=== PATIENT | female | born 1960 | race Caucasian/White ===

== ENCOUNTER 2022-03-04 10:20 | Outpatient (CLI) | payer OTHER, SELFPAY ==
--- NOTE | 2022-03-04 10:35 | XR_ITS ---
WS: [id number] Left hand, 3 views, 03/04/2022 Clinical Data: PARESTHESIA OF SKIN/SWELLING OF JOINT Comparison: None. Findings: No fractures or dislocations are seen. The soft tissues are unremarkable. There is osteoarthritis of the left second through fifth DIP joints. No periarticular demineralization is seen. 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
--- NOTE | 2022-03-04 10:35 | XR_ITS ---
WS: [id number] Right hand, 3 views, 03/04/2022 Clinical Data: PARESTHESIA OF SKIN/SWELLING OF JOINT OF HAND Comparison: None. Findings: No fractures or dislocations are seen. The soft tissues are unremarkable. There is osteoa rthritic change of the DIP joints of the right second through fifth fingers. No periarticular demineralization is seen. 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
== END 2022-03-04 10:21 | disposition home or self-care (01) ==
PROVIDERS: PCP Nurse Practitioner Family; Visit Provider Nurse Practitioner Family
DX: R20.2 Paresthesia of skin (principal); M79.89 Other specified soft tissue disorders; M19.042 Primary osteoarthritis, left hand; M19.041 Primary osteoarthritis, right hand
CPT/HCPCS: 73130

== ENCOUNTER → 2024-05-19 08:04 | Outpatient (BNVA) | payer MEDICARE, OTHER, SELFPAY | PROVIDERS: PCP Nurse Practitioner Family; Visit Provider Surgery | DX: Z12.11 Encounter for screening for malignant neoplasm of colon (principal) | CPT/HCPCS: 99024; 99203 ==

== ENCOUNTER 2024-07-21 10:08 | Day surgery (SDC) | payer MEDICARE, OTHER, SELFPAY ==
[2024-07-21 10:21] VITALS: BP 117/80; PULSE 90; RESP 16; TEMP 36.6; O2SAT 95; BMI 40.7
[2024-07-21] MEDS: sodium chloride 0.9% 1,000 ML 15 ML IV (10:35)
--- NOTE | 2024-07-21 10:36 | ANES.PREANE2 ---
Pre-Anesthetic Assessment Height/Weight: Height 1.6 m Weight 104.326 kg Temp Pulse Resp BP Pulse Ox O2 Del Method 97.8 F 90 16 117/80 95 Room Air 07/21/24 10:21 07/21/24 10:21 07/21/24 10:21 07/21/24 10:21 07/21/24 10:21 07/21/24 10:21 Preop Diagnosis: screening Operation Date: 07/21/24 11:55 Proposed Procedures p Colonoscopy 98870, G0121, Z12.11(Not Applicable) - Lacho Mccollum MD Was Beta Shamir taken within 24 hours: N/A Was Clonidine taken within 24 hours: N/A Last intake: Intake Last Liquid Date 07/20/24 Last Liquid Time 22:00 Last Solid Date 07/19/24 Last Solid Time 18:00 Social No alcohol and No tobacco Exam alert and oriented x 3 Airway Submandibular: within normal limits Cervical ROM: within normal limits Dentition: full History/ROS No significant history except as noted Pulmonary Sleep Apnea uses CPap CV/HEM None reported None reported Hepatic None reported GI None reported Metabolic None reported Musc/skel None reported Neuropsych None reported Anesthetic Plan ASA status: 2 Anesthesia: MAC Risk of > 500 ml blood loss (7ml/kg in children): No Medications/Allergies Home Medications ?Medication ?Instructions ?Recorded ?Confirmed ?Last Taken ?Type No Known Home Medications 05/19/24 07/19/24 Unknown History Allergies Allergy/AdvReac Type Severity Reaction Status Date / Time hydrocodone Allergy Severe ADR-Anxiety Verified 07/19/24 10:34 Current Medications Generic Name Dose Route Start Last Admin Trade Name Freq PRN Reason Stop Dose Admin Sodium Chloride 1,000 mls @ 15 mls/hr 07/21/24 10:12 07/21/24 10:35 Sodium Chloride 0.9% IV 07/22/24 10:11 15 mls/hr .Q24H PRN Administration COLONOSCOPY FLUIDS PFSH Anesthesia Social History Smoking and tobacco/nicotine status: never used tobacco/nicotine
--- NOTE | 2024-07-21 10:39 | W.PM.OPSFHP ---
Same Day Surgery H&P Indication for Procedure/HPI DATE OF PROCEDURE: July 21, 2024 CHIEF COMPLAINT/INDICATIONFOR SURGICAL PROCEDURE: need for screening colonoscopy PREOP DIAGNOSIS: screening PLANNED PROCEDURE: Operation Date: 07/21/24 11:55 Proposed Procedures p Colonoscopy 52404, G0121, Z12.11(Not Applicable) - Lacho Mccollum MD need for screening colonoscopy Medications/Allergies* Home Medications ?Medication ?Instructions ?Recorded ?Confirmed ?Type No Known Home Medications 05/19/24 07/19/24 History Allergies/Adverse Reactions Allergy/AdvReac Type Severity Reaction Status Date / Time hydrocodone Allergy Severe ADR-Anxiety Verified 07/19/24 10:34 Current Medications: Generic Name Dose Route Start Last Admin Trade Name Freq PRN Reason Stop Dose Admin Sodium Chloride 1,000 mls @ 15 mls/hr 07/21/24 10:12 07/21/24 10:35 Sodium Chloride 0.9% IV 07/22/24 10:11 15 mls/hr .Q24H PRN Administration COLONOSCOPY FLUIDS Pertinent History/Comorbid Conditions* Social History Smoking and tobacco/nicotine status: never used tobacco/nicotine Pertinent Exam Findings alert, oriented x 3, clear to auscultation bilaterally and regular rate & rhythm Recommendations Surgery/Procedure today Coding Level of Care Code Acute Code for Chg Fwd
[2024-07-21 11:08] VITALS: BP 110/64; PULSE 77; RESP 18; TEMP 36.3; O2SAT 95
[2024-07-21 11:22] VITALS: BP 103/61; PULSE 88; RESP 18; TEMP 36.2; O2SAT 93
--- NOTE | 2024-07-21 11:24 | ANE.PACU2 ---
Inpatient post-anesthesia follow up: Airway intact: Yes Vital signs: Temperature 97.2 F Pulse Rate 88 Respiratory Rate 18 Blood Pressure 103/61 Pulse Oximetry 93 Oxygen Delivery Me thod Room Air Oxygen Flow Rate Fraction of Inspir ed Oxygen Hydration adequate: Yes Nausea and vomiting: No Pain level: 1 Mental status: Baseline
== END 2024-07-21 11:47 | disposition home or self-care (01) ==
PROVIDERS: PCP Nurse Practitioner Family; Visit Provider Surgery
PROC: 0DJD8ZZ Inspection of Lower Intestinal Tract, Via Natural or Artificial Opening Endoscopic (ICD-10-PCS; CPT 45378; principal; 2024-07-21 11:55)
DX: Z12.11 Encounter for screening for malignant neoplasm of colon (principal); K57.30 Diverticulosis of large intestine without perforation or abscess without bleeding; D12.3 Benign neoplasm of transverse colon; D12.5 Benign neoplasm of sigmoid colon; G47.30 Sleep apnea, unspecified; Z88.5 Allergy status to narcotic agent
CPT/HCPCS: 45380; 88305; J2704; J7030; J9999

== ENCOUNTER → 2024-08-10 10:52 | Outpatient (BNVA) | payer MEDICARE, OTHER, SELFPAY | PROVIDERS: PCP Nurse Practitioner Family; Visit Provider Surgery | DX: Z09 Encounter for follow-up examination after completed treatment for conditions other than malignant neoplasm (principal) | CPT/HCPCS: 99213 ==